=== PATIENT | female | born 1980 | race African-American/Black ===

== ENCOUNTER 2018-10-17 03:57 | Emergency (ER) | payer OTHER ==
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
[2018-10-17 04:10] VITALS: BP 170/94; PULSE 73; TEMP 97.9; BMI 33.6
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
[2018-10-17] MEDS ORDERED: IBUPROFEN 400 MG TABLET (FP) PO ONE (04:17)
[2018-10-17] MEDS ORDERED: METHOCARBAMOL 500 MG TABLET PO ONE (05:14)
[2018-10-17] MEDS ORDERED: KETOROLAC TROMETHAMINE 30 MG/1 ML VIAL IM ONE (05:14)
[2018-10-17] MEDS ORDERED: KETOROLAC TROMETHAMINE 30 MG/1 ML VIAL ONE (05:20)
[2018-10-17] MEDS ORDERED: METHOCARBAMOL 500 MG TABLET ONE (05:20)
== END 2018-10-17 06:25 | disposition home or self-care (01) ==
LOC: JER 03:57
PROC: 3E0233Z Introduction of Anti-inflammatory into Muscle, Percutaneous Approach (ICD-10-PCS; principal; 2018-10-17)
DX: M25.511 Pain in right shoulder (principal); M62.838 Other muscle spasm
CPT/HCPCS: 73030-TC-RT-FY; 84703; 99281-25

== ENCOUNTER 2018-12-10 09:09 | Emergency (ER) | payer OTHER ==
[2018-12-10 09:24] VITALS: BP 126/84; PULSE 79; TEMP 98.4; BMI 30.9
--- NOTE | 2018-12-10 09:55 | PDOC ---
History of Present Illness - General Chief Complaint: Headache Stated Complaint: BLOOD PRESSURE PROBLEM, HEADACHE Time Seen by Provider: 12/10/18 09:39 History Source: Patient - History of Present Illness Initial Comments: 12/10/18 11:57 The patient is 37 year old female with no PMH who presents c/o 2 day h/o headache. 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 Headache is frontal with no radiation. Endorses nausea w/o vomiting. No visual changes, tinnitus, mental status changes. No h/o migraines. Headache is not the worst headache of her life. Tylenol provided some relief. The patient denies chest pain, shortness of breath, abdominal pain, nausea/ vomiting, diarrhea/constipation, dysuria/hematuria. Past History - Past Medical History Allergies/Adverse Reactions: Allergies Allergy/AdvReac Type Severity Reaction Status Date / Time No Known Allergies Allergy Verified 12/10/18 09:22 Home Medications: Ambulatory Orders NK [No Known Home Medication] 12/10/18 Anemia: No Asthma: No Cancer: No Cardiac Disorders: No CVA: No COPD: No CHF: No Dementia: No Diabetes: No Dialysis: No GI Disorders: No Disorders: No HTN: Yes (PT STATES IT WAS INDUCED HTN. NOT ON BP MEDS) Hypercholesterolemia: No Kidney Stones: No Liver Disease: No Seizures: No Thyroid Disease: No - Surgical History Abdominal Surgery: No Appendectomy: No Cardiac Surgery: No Cholecystectomy: Yes Lung Surgery: No Neurologic Surgery: No Orthopedic Surgery: No - Reproductive History (#): 1 Para: 1 - Immunization History Immunization Up to Date: Yes - Suicide/Smoking/Psychosocial Hx Smoking Status: No Smoking History: Never smoked Have you smoked in the past 12 months: No Number of Cigarettes Smoked Daily: 0 Hx Alcohol Use: No Drug/Substance Use Hx: No Substance Use Type: None Hx Substance Use Treatment: No Review of Systems - Review of Systems Constitutional: No: Chills, Fever HEENTM: No: Blurred Vision, Recent change in vision, Double Vision, Hearing Loss Respiratory: No: Cough, Shortness of Breath Cardiac (ROS): No: Chest Pain, Lightheadedness, Palpitations, Syncope ABD/GI: No: Constipated, Diarrhea, Nausea, Vomiting : No: Burning, Dysuria *Physical Exam - Vital Signs Last Vital Signs Temp Pulse Resp BP Pulse Ox 98.4 F 79 18 126/84 99 12/10/18 09:22 12/10/18 09:22 12/10/18 09:22 12/10/18 09:22 12/10/18 09:22 - Physical Exam General Appearance: Yes: Nourished, Appropriately Dressed HEENT: positive: Normal ENT Inspection, Normal Voice, Hearing Grossly Normal Neck: positive: Trachea midline Respiratory/Chest: positive: Lungs Clear, Normal Breath Sounds Cardiovascular: positive: S1, S2. negative: Edema, JVD Vascular Pulses: Dorsalis-Pedis (R): 2+, Doralis-Pedis (L): 2+ Gastrointestinal/Abdominal: positive: Normal Bowel Sounds, Soft Extremity: positive: Normal Capillary Refill, Normal Inspection Integumentary: positive: Normal Color, Dry, Warm Neurologic: positive: Fully Oriented, Alert Moderate Sedation - Procedure Monitoring Vital Signs: Procedure Monitoring Vital Signs Temperature 98.4 F 12/10/18 09:22 Pulse Rate 79 12/10/18 09:22 Respiratory Rate 18 12/10/18 09:22 Blood Pressure 126/84 12/10/18 09:22 O2 Sat by Pulse Oximetry (%) 99 12/10/18 09:22 Medical Decision Making - Medical Decision Making 12/10/18 12:54 37 year old female with no significant PMH presents with headache. VS unremarkable. Will obtain Head CT to r/o acute bleed. Also consider migraine, tension headache, . Tylenol for pain control. Reassess Urine negative Patient reassessed at bedside States she is symptomatically improved w/Tylenol. VSS Notes 2-3 month h/o intermittent diffuse body aches, no association with working (patient works as an [employer] INS[employer] SPECIAL AGENT and notes she is physically active @ work); no known h/o AI disease in family. Head CT negative Patient ambulatory around unit. Improved. Will discharge home with return precautions and PMD follow-up including evaluation for reported body aches. Clinical Impression: Headache: ? possible tension vs. migraine *DC/Admit/Observation/Transfer Diagnosis at time of Disposition: Headache - Discharge Dispostion Disposition: HOME Condition at time of disposition: Good Decision to Admit order: No - Referrals - Patient Instructions Printed Discharge Instructions: DI for Headache Additional Instructions: You were evaluated today for your headaches. A cat scan of your head showed no concerning findings. At this time you are safe for discharge home. You can take Tylenol (up to 4000 mg daily) alternating with Motrin (up to 3200 mg daily) Please follow-up with your primary care doctor in the next 1 week for your headaches as well as your body aches. Your care is not complete until you are evaluated by your primary care doctor. Return to the Emergency Department for any new/worsening/concerning symptoms. - Post Discharge Activity
--- NOTE | 2018-12-10 09:56 | PDOC ---
Attending Attestation - Resident Resident Name: Luisa Montiel - ED Attending Attestation I have performed the following: I have examined & evaluated the patient, The case was reviewed & discussed with the resident, I agree w/resident's findings & plan, Exceptions are as noted - HPI HPI: 12/10/18 14:08 Ms Katharine Escobedo is a 37 yo F who presents to the ER with a complaint of headache The patient states that her symptoms began a possibly 2 days ago. She awoke with a headache. She describes headache as tension, frontal, no radiation to the neck. No associated vomiting, though she was nauseous yesterday. No head trauma. No fevers or chills. No focal weakness or numbness. Patient had a currently 5/10. Headache started 2 days ago, she took Tylenol which helped. - Physicial Exam PE: 12/10/18 14:08 GENERAL: The patient is in no acute distress. HEAD: Normal EYES: PERRLA, EOMI, sclera anicteric, conjunctiva clear. ENT: Ears normal, nares patent, oropharynx clear without exudates. Moist mucous membranes. NECK: Normal range of motion, supple without lymphadenopathy, JVD, or masses. LUNGS: Breath sounds equal, clear to auscultation bilaterally. No wheezes, and no crackles. HEART:Regular rate and rhythm, normal S1 and S2 without murmur, rub or gallop. ABDOMEN: Soft, nontender, normoactive bowel sounds. No guarding, no rebound. No masses palpable. EXTREMITIES: Normal range of motion, no edema. No clubbing or cyanosis. No erythema, or tenderness. NEUROLOGICAL: Cranial nerves II through XII grossly intact. Normal speech. No focal neurological deficits. MUSCULOSKELETAL: Back non-tender to palpation, no CVA tenderness SKIN: Warm, Dry, normal turgor, no rashes or lesions noted. 12/10/18 14:09 - Medical Decision Making 12/10/18 14:10 CT head: No acute intracranial hemorrhage. Patient given Reglan and Tylenol with complete resolution of her symptoms. Will plan to discharge home. Patient asked to follow-up with her primary care physician. Return to the ER for any other concerns or complaints Clinical impression: tension headache, initial presentation
[2018-12-10] MEDS ORDERED: ACETAMINOPHEN 500 MG TABLET (FP) PO ONE (10:06)
[2018-12-10] MEDS ORDERED: METOCLOPRAMIDE HCL INJECTION 10 MG/2 ML VIAL IM ONE (10:06)
[2018-12-10] MEDS ORDERED: ACETAMINOPHEN 325 MG TABLET (FP) ONE (10:14)
[2018-12-10] MEDS ORDERED: METOCLOPRAMIDE HCL INJECTION 10 MG/2 ML VIAL ONE (10:14)
== END 2018-12-10 13:34 | disposition home or self-care (01) ==
LOC: JER 09:09
PROC: 3E023GC Introduction of Other Therapeutic Substance into Muscle, Percutaneous Approach (ICD-10-PCS; principal; 2018-12-10)
DX: R51 Headache (principal)
CPT/HCPCS: 70450-TC; 84703; 99281-25

== ENCOUNTER 2019-07-20 04:23 | Emergency (ER) | payer OTHER ==
--- NOTE | 2019-07-20 04:31 | PDOC ---
History of Present Illness - General Stated Complaint: 11 WEEEKS /CRAMPS Time Seen by Provider: 07/20/19 04:31 - History of Present Illness Initial Comments: 07/20/19 05:03 The patient is a 38 year old 11 week female with no significant PMH who presents for evaluation of lower abdominal pain. The patient reports that she began experiencing moderate lower abdominal cramping yesterday evening that has been persistent despite taking tylenol at home prompting her presentation to the ED for further evaluation. She otherwise denies fevers, chills, SOB, chest pain, nausea, vomiting, vaginal bleeding, vaginal discharge, or changes with urination or bowel movements. Past History - Past Medical History Allergies/Adverse Reactions: Allergies Allergy/AdvReac Type Severity Reaction Status Date / Time No Known Allergies Allergy Verified 07/20/19 04:51 Home Medications: Ambulatory Orders NK [No Known Home Medication] 12/10/18 Anemia: No Asthma: No Cancer: No Cardiac Disorders: No CVA: No COPD: No CHF: No Dementia: No Diabetes: No Dialysis: No GI Disorders: No Disorders: No HTN: Yes (PT STATES IT WAS INDUCED HTN. NOT ON BP MEDS) Hypercholesterolemia: No Kidney Stones: No Liver Disease: No Seizures: No Thyroid Disease: No - Surgical History Abdominal Surgery: No Appendectomy: No Cardiac Surgery: No Cholecystectomy: Yes Lung Surgery: No Neurologic Surgery: No Orthopedic Surgery: No - Reproductive History (#): 1 Para: 1 - Immunization History Immunization Up to Date: Yes - Suicide/Smoking/Psychosocial Hx Smoking Status: No Smoking History: Never smoked Have you smoked in the past 12 months: No Number of Cigarettes Smoked Daily: 0 Hx Alcohol Use: No Drug/Substance Use Hx: No Substance Use Type: None Hx Substance Use Treatment: No Review of Systems - Review of Systems Comments:: 07/20/19 05:07 Constitutional: No fevers, chills, fatigue, malaise HEENT: No Rhinorrhea, nasal congestion, visual changes Cardiovascular: No chest pain, syncope, palpitations, lightheadedness Respiratory: No Cough, SOB, Hemoptysis, Gastrointestinal: Lower abdominal cramping No Nausea, Vomiting, Constipation, Diarrhea, Melena Genitourinary: No Dysuria, Frequency, Urgency, Hesitancy, Hematuria, Flank pain Musculoskeletal: No Myalgia, arthralgia Skin: No rashes, itching, bruising, pallor Neurologic: No Headache, Dizziness, Numbness, Weakness, or Tingling Psychiatric: No Hallucinations. No SI or HI *Physical Exam - Physical Exam Comments: 07/20/19 05:08 General Appearance: Nourished. No Apparent Distress HEENT: EOMI, LUIS. No Pharyngeal Erythema, Tonsillar Exudate, Tonsillar Erythema Neck: No Cervical Lymphadenopathy Respiratory/Chest: Lungs Clear, Normal Breath Sounds. No Crackles, Rales, Rhonchi, Wheezing Cardiovascular: Regular Rhythm, Regular Rate. No Murmur, Gallops, Rubs Gastrointestinal/Abdominal: Normal Bowel Sounds, Soft. No Guarding, Rebound, Tenderness Pelvic Exam: Normal External Exam. Closed Cervical Os. No discharge or bleeding noted. No CMT or adenxal tenderness. Musculoskeletal: No CVA Tenderness Extremity: Normal Capillary Refill Integumentary: Normal Color, Dry, Warm Neurologic: Fully Oriented, Alert, Normal Mood/Affect, Normal Response, ED Treatment Course - LABORATORY CBC & Chemistry Diagram: 07/20/19 05:08 07/20/19 05:08 Medical Decision Making - Medical Decision Making 07/20/19 05:09 The patient is a 38 year old 11 week female with no significant PMH who presents for evaluation of lower abdominal pain. Differential includes but is not limited to: Round ligament pain, Miscarriage, UTI, Infectious, Metabolic Derangement. Given the patient's history and physical exam, we will obtain a cbc, cmp, beta-quant, US, UA to evaluate further. We will treat the patient with tylenol and continue to monitor and reassess while here in the ED. Bedside US demonstrates a live IUP with a HR of 164. 07/20/19 06:55 CBC, cmp, UA are unremarkable. The patient was signed out to the day team pending official US imaging and dispo. *DC/Admit/Observation/Transfer Diagnosis at time of Disposition: related bilateral lower abdominal cramping, antepartum - Discharge Dispostion Condition at time of disposition: Stable - Referrals Referrals: Alex Morelos MD [Staff Physician] - - Patient Instructions Printed Discharge Instructions: DI for Abdominal Pain -- Early Additional Instructions: 1) Please follow-up with your primary care doctor in the next 2-3 days. Please call tomorrow to schedule a follow up appointment. If you cannot follow up with your doctor within 1 week please return to the Emergency Department for any urgent issues. 2) Your laboratory and Ultrasound imaging results were normal here in the ER. You are to call to schedule a follow up appointment with your Echo Technologist Specialist Dr. Morelos within 2-3 days to discuss your ER visit and further management of your symptoms. You may use tylenol at home as needed to help manage your pain. 3) If you have any worsening of symptoms or any other concerns, please return to the ER immediately. Return if worsening symptoms including vaginal bleeding, fevers, headache, vomiting, visual or hearing disturbances, abdominal pain, chest pain, shortness of breath, syncope, dehydration, inability to take things by mouth/vomiting, altered mental status, or worsening concerning symptoms. - Post Discharge Activity
[2019-07-20 04:51] VITALS: BMI 35.8
[2019-07-20] MEDS ORDERED: ACETAMINOPHEN 1000 MG/100 ML VIAL (NON FORMULARY) IVPB ONE (05:01)
--- NOTE | 2019-07-20 05:02 | PDOC ---
Documentation entered by Harriet Costa SCRIBE, acting as scribe for Elaine Murillo DO. Elaine Murillo DO: This documentation has been prepared by the Igor mata Adrianna, SCRIBE, under my direction and personally reviewed by me in its entirety. I confirm that the documentation accurately reflects all work, treatment, procedures, and medical decision making performed by me. Attending Attestation - Resident Resident Name: Froilan Gomez - ED Attending Attestation I have performed the following: I have examined & evaluated the patient, The case was reviewed & discussed with the resident, I agree w/resident's findings & plan - HPI HPI: The patient is a 38 year old female (), currently at 11 weeks gestation with no significant PMH, who presents to the ED for evaluation of pelvic cramping Allergies: NKA, NKDA Surgical History: Cholecystectomy Social History: Denies EtOH, tobacco, or illicit drug use PCP: 07/20/19 05:01 - Physicial Exam PE: Agree with resident exam. - Medical Decision Making 07/20/19 05:01 38 yo female with pelvic cramping mary 11 weeks GA bedside US shows a live IUP with fhr at 163 bpm plan for labs/u/s and official US
[2019-07-20] MEDS ORDERED: ACETAMINOPHEN INJECTION 100 ML IVPB ONE (05:16)
[2019-07-20 05:31] LABS: EPI CELLS 0.6 /HPF (0-5/HPF); HYALINE CASTS 2 /lpf (0-8); URINE APPEARANCE CLEAR; URINE BACTERIA 10.7 /hpf (NEGATIVE); URINE BILIRUBIN NEGATIVE (NEGATIVE); URINE COLOR YELLOW; URINE GLUCOSE (UA) NEGATIVE (NEGATIVE); URINE KETONE NEGATIVE (NEGATIVE); URINE LEUK ESTERASE NEGATIVE (NEGATIVE); URINE NITRITE NEGATIVE (NEGATIVE); URINE PROTEIN TRACE (NEGATIVE); URINE RBC 2 /hpf (0-4); URINE UROBILINOGEN 0.2 mg/dL (0.2-1.0); URINE WBC 0 /hpf (0-5)
[2019-07-20 05:42] LABS: BASO % 0.7 % (0-2.0); EOS % 1.8 % (0-4.5); HEMATOCRIT 38.9 % (32.4-45.2); HEMOGLOBIN 12.8 GM/dL (10.7-15.3); LYMPH % 26.5 % (8-40); MCH 26.4 pg (25.7-33.7); MCHC 32.8 g/dl (32.0-36.0); MEAN CELL VOLUME 80.6 fl (80-96); MEAN PLT VOLUME 9.8 fl (7.5-11.1); MONO % 10.3 % (3.8-10.2); NEUT % 60.7 % (42.8-82.8); PLATELET COUNT 247 K/MM3 (134-434); RBC 4.83 M/mm3 (3.60-5.2); RDW 17.9 % (11.6-15.6); WHITE BLOOD COUNT 9.2 K/mm3 (4.0-10.0)
[2019-07-20 05:53] LABS: ALBUMIN 3.1 g/dl (3.4-5.0); BILIRUBIN,TOTAL 0.4 mg/dL (0.2-1); BLOOD UREA NITROGEN 8.1 mg/dL (7-18); CREATININE 0.6 mg/dL (0.55-1.3); POTASSIUM 5.1 mmol/L (3.5-5.1); TOT PROT 7.1 g/dl (6.4-8.2)
[2019-07-20 06:19] VITALS: TEMP 98.3
--- NOTE | 2019-07-20 09:15 | PDOC ---
*Physical Exam - Vital Signs Last Vital Signs Temp Pulse Resp BP Pulse Ox 98.3 F 72 18 138/75 100 07/20/19 06:17 07/20/19 06:17 07/20/19 06:17 07/20/19 06:17 07/20/19 06:17 ED Treatment Course - LABORATORY CBC & Chemistry Diagram: 07/20/19 05:08 07/20/19 05:08 - ADDITIONAL ORDERS Additional order review: Laboratory Results 07/20/19 07/20/19 05:08 05:06 Sodium 139 Potassium 5.1 Chloride 108 H Carbon Dioxide 26 Anion Gap 5 L BUN 8.1 Creatinine 0.6 Est GFR (CKD-EPI)AfAm 133.07 Est GFR (CKD-EPI)NonAf 114.82 Random Glucose 88 Calcium 9.0 Total Bilirubin 0.4 AST 24 ALT 29 Alkaline Phosphatase 51 Total Protein 7.1 Albumin 3.1 L Beta HCG, Quant 93626.6 Urine Color Yellow Urine Appearance Clear Urine pH 7.0 Ur Specific [place] 1.011 Urine Protein Trace Urine Glucose (UA) Negative Urine Ketones Negative Urine Blood 1+ H Urine Nitrite Negative Urine Bilirubin Negative Urine Urobilinogen 0.2 Ur Leukocyte Esterase Negative Urine WBC (Auto) 0 Urine RBC (Auto) 2 Urine Casts (Auto) 2 U Epithel Cells (Auto) 0.6 Urine Bacteria (Auto) 10.7 07/20/19 05:08 RBC 4.83 MCV 80.6 MCHC 32.8 RDW 17.9 H MPV 9.8 Neutrophils % 60.7 Lymphocytes % 26.5 Monocytes % 10.3 H Eosinophils % 1.8 Basophils % 0.7 - Medications Given in the ED: ED Medications Discontinued Medications Generic Name Dose Route Start Last Admin Trade Name Homer PRN Reason Stop Dose Admin Acetaminophen 1,000 mg 07/20/19 05:01 07/20/19 05:19 Ofirmev Injection - IVPB 07/20/19 05:02 1,000 mg ONCE ONE Administration Medical Decision Making - Medical Decision Making 07/20/19 09:14 38 yo F presenting with a complaint of abdominal cramping Signed out pending US US read as : Single Live IUP, 11 weeks and 4 days FHR: 168 bpm Neither ovary visualized No free fluid Fibriod Will discharge to home Follow up with Dr Morelos *DC/Admit/Observation/Transfer Diagnosis at time of Disposition: related bilateral lower abdominal cramping, antepartum - Discharge Dispostion Disposition: HOME Condition at time of disposition: Stable Decision to Admit order: No - Referrals Referrals: Alex Morelos MD [Staff Physician] - - Patient Instructions Printed Discharge Instructions: DI for Abdominal Pain -- Early Additional Instructions: 1) Please follow-up with your primary care doctor in the next 2-3 days. Please call tomorrow to schedule a follow up appointment. If you cannot follow up with your doctor within 1 week please return to the Emergency Department for any urgent issues. 2) Your laboratory and Ultrasound imaging results were normal here in the ER. You are to call to schedule a follow up appointment with your [employer]lier Specialist Dr. Morelos within 2-3 days to discuss your ER visit and further management of your symptoms. You may use tylenol at home as needed to help manage your pain. 3) If you have any worsening of symptoms or any other concerns, please return to the ER immediately. Return if worsening symptoms including vaginal bleeding, fevers, headache, vomiting, visual or hearing disturbances, abdominal pain, chest pain, shortness of breath, syncope, dehydration, inability to take things by mouth/vomiting, altered mental status, or worsening concerning symptoms. - Post Discharge Activity
[2019-07-20 09:34] VITALS: BP 124/78; PULSE 68
== END 2019-07-20 09:30 | disposition home or self-care (01) ==
LOC: JER 04:23
PROC: 3E033NZ Introduction of Analgesics, Hypnotics, Sedatives into Peripheral Vein, Percutaneous Approach (ICD-10-PCS; principal; 2019-07-20)
DX: O26.891 Other specified pregnancy related conditions, first trimester (principal); Z3A.11 11 weeks gestation of pregnancy; R10.2 Pelvic and perineal pain
CPT/HCPCS: 36415; 76801-TC; 80053; 81003; 84702; 85025; 87086; 99283-25; J0131

== ENCOUNTER 2020-01-05 12:30 | Inpatient (IN) | payer OTHER ==
[2020-01-05] MEDS ORDERED: LIDOCAINE HCL 1% PRESERVATIVE FREE - 30ML VIAL ONE (13:14)
[2020-01-05] MEDS ORDERED: CITRIC ACID/SODIUM CITRATE 30 ML UNIT-DOSE CUP PO ONE (13:47)
--- NOTE | 2020-01-05 13:50 | HP ---
Past Medical History - Primary Care Physician PCP:: Alex Morelos - Admission Chief Complaint: 36 weeks, PIH, previous c/s , previous myomectomy, AMA. IVF , fibroid uterus History of Present Illness: 39 f with one previous c/s , previous myomectomy , fibroids uterus, PIH with proteinuria , AMA , IVF admitted for repeat c/s for PIH , received celestone ,advised by MFM advised c/s, risks associated with repeat c/ s and previous myomectomy discussed , risks of infection, bleeding, injury to surrounding tissue , post op complication discussed. 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 History of Recent Travel: No Home Medications - Allergies Allergies/Adverse Reactions: Allergies Allergy/AdvReac Type Severity Reaction Status Date / Time No Known Allergies Allergy Verified 01/05/20 13:59 - Home Medications Home Medications: Ambulatory Orders Vitamins (Sjr) - 1 tab PO DAILY 01/03/20 Review of Systems - Review of Systems Constitutional: reports: No Symptoms Eyes: reports: No Symptoms HENT: reports: No Symptoms Neck: reports: No Symptoms Cardiovascular: reports: No Symptoms Respiratory: reports: No Symptoms Gastrointestinal: reports: No Symptoms Genitourinary: reports: No Symptoms Breasts: reports: No Symptoms Reported Musculoskeletal: reports: No Symptoms Integumentary: reports: No Symptoms Neurological: reports: No Symptoms Endocrine: reports: No Symptoms Hematology/Lymphatic: reports: No Symptoms Psychiatric: reports: No Symptoms Physical Exam - Maternity Constitutional: Yes: Well Nourished, No Distress, Calm Eyes: Yes: WNL, Conjunctiva Clear, EOM Intact HENT: Yes: WNL, Atraumatic, Normocephalic Neck: Yes: WNL, Supple, Trachea Midline Cardiovascular: Yes: WNL, Regular Rate and Rhythm Breast(s): Yes: WNL - Abdominal Exam/OB Fundal Height: 38 Number of Fetuses: Single Presentation: Vertex Contractions: No Intensity: Unaware Monitor Mode: External Heart Rate Location: RLQ Accelerations: Non-Uniform Decelerations: None - Vaginal Exam/OB Vaginal Bleediing: No Speculum Exam: No Dilatation (cm): closed Effacement (%): 0 Amniotic Membrane Status: Intact Presentation: Vertex/Position Station: -4 - Physical Exam Musculoskeletal: Yes: WNL Extremities: Yes: WNL Edema: Yes Edema: LLE: 1+, RLE: 1+ Integumentary: Yes: WNL Deep Tendon Reflex Grade: Normal +2 ...Motor Strength: WNL Psychiatric: Yes: WNL Hemorrhage Risk Assessment - Risk Factors Medium Risk Factors: Yes: Prior , uterine surgery,or multiple laparotomies, History of previous hemorrhage Risk Score: 2 Risk Level: High Risk Problem List - Problems (1) with 36 completed weeks gestation Code(s): Z3A.36 - 36 WEEKS GESTATION OF (2) Previous section complicating Code(s): O34.219 - MATERNAL CARE FOR UNSP TYPE SCAR FROM PREVIOUS DEL (3) Fibroid uterus Code(s): D25.9 - LEIOMYOMA OF UTERUS, UNSPECIFIED Qualifiers: Uterine leiomyoma location: intramural Qualified Code(s): D25.1 - Intramural leiomyoma of uterus (4) Advanced maternal age (AMA) in Code(s): FIB1592 - (5) conceived through in vitro fertilization Code(s): O09.819 - SUPRVSN OF PREG RSLT FROM ASSISTED REPRODCTV TECH, UNSP TRI (6) PIH ( induced hypertension), antepartum Code(s): O13.9 - GESTATIONAL HTN W/O SIGNIFICANT PROTEINURIA, UNSP TRIMESTER (7) Proteinuria affecting Code(s): O12.10 - GESTATIONAL PROTEINURIA, UNSPECIFIED TRIMESTER Assessment/Plan for repeat c/s, risks of prematurity and c/s discussed
[2020-01-05] MEDS ORDERED: ELECTROLYTE-148 SOLN 1,000 ML IV SCH (14:00)
[2020-01-05 14:11] VITALS: BMI 37.5
[2020-01-05] MEDS ORDERED: PROPOFOL 20 ML ONE (14:25)
[2020-01-05] MEDS ORDERED: morphine SULFATE/PF 0.5 MG/ML (2cc Syringe - QUVA) ONE (14:28)
[2020-01-05] MEDS ORDERED: OXYTOCIN 20 UNITS in 0.9% NS 20 UNIT/1,000 ML INFUS.BAG IV ONE (15:07)
[2020-01-05] MEDS ORDERED: KETOROLAC TROMETHAMINE 30 MG/1 ML VIAL ONE (15:21)
[2020-01-05] MEDS ORDERED: morphine SULFATE/PF 0.5 MG/ML (2cc Syringe - QUVA) EP ONE (15:36)
[2020-01-05] MEDS ORDERED: ONDANSETRON 4 MG/2 ML VIAL IVPUSH PRN (15:36)
[2020-01-05] MEDS ORDERED: IBUPROFEN 800 MG/8 ML IJ IVPB PRN (16:24)
[2020-01-05] MEDS ORDERED: BENZOCAINE 20% 57 GM BOTTLE TP PRN (16:24)
[2020-01-05] MEDS ORDERED: oxyCODONE HCL 5 MG TABLET PO PRN (16:24)
[2020-01-05] MEDS ORDERED: METHYLERGONOVINE MALEATE 0.2 MG/1 ML AMP IM PRN (16:24)
[2020-01-05] MEDS ORDERED: BENZOCAINE 28 GM HEMORRHOIDAL OINTMENT PR PRN (16:24)
[2020-01-05] MEDS ORDERED: WITCH HAZEL 50% (TUCKS) 40 PAD/JAR PAD TP PRN (16:24)
--- NOTE | 2020-01-05 16:29 | OP ---
Operative Note - Note: Operative Date: 01/05/20 Operation: previous c/s, previous myomectomy , PIH Findings: live baby girl ROT, cord around neck once . 9/9 Post-Operative Diagnosis: Same as Pre-op Surgeon: Alex Morelos Ophthalmic Photographer: Andrew Calderon Anesthesia: Spinal Specimens Removed: placenta Estimated Blood Loss (mls): 500 Drains & Tubes with Location: simeon Blood Volume Replaced (mls): 0 Operative Report Dictated: Yes
[2020-01-05] MEDS ORDERED: OXYTOCIN 20 UNITS in 0.9% NS 20 UNIT/1,000 ML INFUS.BAG IV SCH (16:30)
[2020-01-05] MEDS ORDERED: CEFAZOLIN 1 GM/D5W 1 GM/50 ML BAG IVPB SCH (18:00)
[2020-01-05] MEDS: DEXTROSE 5%-LACTATED RINGERS 1,000 ML IV SCH (20:22)
[2020-01-05] MEDS: CEFAZOLIN 1 GM/D5W 1 GM/50 ML BAG IVPB SCH (22:27)
[2020-01-06] MEDS: diphenhydrAMINE HCL 25 MG CAPSULE (FP) PO PRN ×2 (02:09→10:44)
[2020-01-06] MEDS: DEXTROSE 5%-LACTATED RINGERS 1,000 ML IV SCH ×2 (02:10→20:16)
[2020-01-06] MEDS: CEFAZOLIN 1 GM/D5W 1 GM/50 ML BAG IVPB SCH (06:14)
--- NOTE | 2020-01-06 07:45 | PN ---
Progress Note (short form) - Note Progress Note: pod 1 s/p repeat c/s, doing well, Last Vital Signs Temp Pulse Resp BP Pulse Ox 98.4 F 74 18 119/71 100 01/06/20 06:00 01/06/20 06:00 01/06/20 06:00 01/06/20 06:00 01/05/20 17:00 abdomen soft, no disstenssion, no cva uterus firm lochia mild no calf tenderness urine clear , adequate plan ambulate cbc advance diet pain management Problem List - Problems (1) with 36 completed weeks gestation Code(s): Z3A.36 - 36 WEEKS GESTATION OF (2) Previous section complicating Code(s): O34.219 - MATERNAL CARE FOR UNSP TYPE SCAR FROM PREVIOUS DEL (3) Fibroid uterus Code(s): D25.9 - LEIOMYOMA OF UTERUS, UNSPECIFIED Qualifiers: Uterine leiomyoma location: intramural Qualified Code(s): D25.1 - Intramural leiomyoma of uterus (4) Advanced maternal age (AMA) in Code(s): [id number] - (5) conceived through in vitro fertilization Code(s): O09.819 - SUPRVSN OF PREG RSLT FROM ASSISTED REPRODCTV TECH, UNSP TRI (6) PIH ( induced hypertension), antepartum Code(s): O13.9 - GESTATIONAL HTN W/O SIGNIFICANT PROTEINURIA, UNSP TRIMESTER (7) Proteinuria affecting Code(s): O12.10 - GESTATIONAL PROTEINURIA, UNSPECIFIED TRIMESTER
[2020-01-06 09:09] LABS: BASO % 0.1 % (0-2.0); EOS % 0.2 % (0-4.5); HEMATOCRIT 34.2 % (32.4-45.2); HEMOGLOBIN 11.1 GM/dL (10.7-15.3); LYMPH % 18.7 % (8-40); MCH 27.7 pg (25.7-33.7); MCHC 32.6 g/dl (32.0-36.0); MEAN CELL VOLUME 85.1 fl (80-96); MEAN PLT VOLUME 10.4 fl (7.5-11.1); MONO % 11.7 % (3.8-10.2); NEUT % 69.3 % (42.8-82.8); PLATELET COUNT 182 K/MM3 (134-434); RBC 4.01 M/mm3 (3.60-5.2); RDW 16.9 % (11.6-15.6); WHITE BLOOD COUNT 10.2 K/mm3 (4.0-10.0)
--- NOTE | 2020-01-06 10:24 | OP ---
DATE OF OPERATION: 01/06/2020 PREOPERATIVE DIAGNOSIS: 36 weeks, -induced hypertension, previous section, previous myomectomy, advanced maternal age, fibroid uterus, and in vitro fertilization . POSTOPERATIVE DIAGNOSIS: 36 weeks, -induced hypertension, previous section, previous myomectomy, advanced maternal age, fibroid uterus, and in vitro fertilization . PROCEDURE: Repeat low segment transverse section. SURGEON: Alex Morelos MD REHABILITATION COORDINATOR: HEBERT Mehta ANESTHESIA: Spinal. ESTIMATED BLOOD LOSS: 500 mL. DESCRIPTION OF PROCEDURE: Patient was taken to the operating room under adequate spinal anesthesia. Abdomen and perineum were prepped and draped. A Pfannenstiel abdominal skin incision was made over the previous incision. Abdominal wall was cut layer by layer until peritoneum was exposed and incised. Upon entering the abdominal cavity, lower uterine segment was identified, and uterovesical fold of peritoneum established. Bladder was pushed down. A low transverse uterine incision was made. Incision was extended laterally with bandage scissors. Amniotic sac was entered. Clear fluid. Head delivered from ROP position. Cord around the neck x1 reduced anteriorly and posteriorly. Shoulders delivered without any difficulty. Live baby girl was delivered. Apgars 9, 9. Placenta was delivered manually. Uterine cavity was cleaned of all remaining tissue. Uterine incision was closed in 2 layers, the first layer with 0 Biosyn continuous suture, the second layer with 0 Biosyn imbricating the 1st layer. Bladder flap was closed with 0 Biosyn continuous suture. Both tubes and ovaries were checked and were normal. There were several fibroids at the body of the uterus, small. No active bleeding was seen. All of the lap pad, sponge, and instrument counts were correct. Pelvic cavity several times irrigated and then peritoneum was closed with a 0 Biosyn continuous suture. Muscles were brought together with interrupted sutures of 0 Biosyn. Fascia was closed with 0 Biosyn continuous suture, subcutaneous fat with interrupted suture of 0 Biosyn, and skin was closed with victoria. Patient tolerated procedure well. Left the OR in good condition. Jaymie [id number]
[2020-01-06] MEDS: ENOXAPARIN NA (PORCINE) 40 MG/0.4 ML DISP.SYRIN SQ SCH (10:44)
[2020-01-06] MEDS: IBUPROFEN 600 MG TABLET (FP) PO PRN (12:21)
[2020-01-06] MEDS: SIMETHICONE 80 MG TAB.CHEW (FP) PO PRN ×2 (12:22→22:43)
[2020-01-06] MEDS: ACETAMINOPHEN 325 MG TABLET (FP) PO PRN ×2 (12:22→22:42)
[2020-01-06] MEDS ORDERED: DIPHTH,PERTUSS(ACELL),TET 0.5 ML DISP.SYRIN IM ONE (14:00)
--- NOTE | 2020-01-06 14:46 | PN ---
Progress Note (short form) - Note Progress Note: Anesthesia POD#1 S/P under spinal and Duramorph. VSS,no N/V , ambulating well. some itch is still there. Legs fully recovered. No complications to anesthesia seen. Heather Thompson MD.
[2020-01-06] MEDS: BISACODYL 10 MG SUPP.RECT RC PRN (22:07)
[2020-01-07] MEDS: oxyCODONE HCL 5 MG TABLET PO PRN ×3 (08:13→19:29)
[2020-01-07] MEDS: SIMETHICONE 80 MG TAB.CHEW (FP) PO PRN ×3 (08:13→19:29)
[2020-01-07] MEDS: ACETAMINOPHEN 325 MG TABLET (FP) PO PRN ×3 (08:14→19:29)
[2020-01-07] MEDS: ENOXAPARIN NA (PORCINE) 40 MG/0.4 ML DISP.SYRIN SQ SCH (11:00)
--- NOTE | 2020-01-07 11:26 | PN ---
Post Progress Note - Subjective Subjective: Patient without acute complaints. Reports tolerating oral intake without nausea or vomiting. Ambulating without dizziness. Denies fevers or chills. Pain well controlled with oral pain medication. without difficulty. Passing flatus. Post Day: 2 Type of Delivery: Repeat C/S Vital Signs: Vital Signs Temperature 98.2 F 01/07/20 06:00 Pulse Rate 86 01/07/20 06:00 Respiratory Rate 20 01/07/20 06:00 Blood Pressure 159/91 01/07/20 06:00 O2 Sat by Pulse Oximetry (%) 100 01/05/20 17:00 Breast Exam: Yes: Soft Uterus: Yes: Fundus Firm Incision: Yes: Dressing dry and intact Abdomen/GI: Yes: Passing flatus Lochia: Yes: Rubra Lochia, amount: Small Extremities: Yes: Calves non-tender Perineum: Yes: Intact Activity: Ambulating - Labs Labs: CBC WBC 10.2 K/mm3 (4.0-10.0) H 01/06/20 07:42 RBC 4.01 M/mm3 (3.60-5.2) 01/06/20 07:42 Hgb 11.1 GM/dL (10.7-15.3) 01/06/20 07:42 Hct 34.2 % (32.4-45.2) 01/06/20 07:42 MCV 85.1 fl (80-96) 01/06/20 07:42 MCH 27.7 pg (25.7-33.7) 01/06/20 07:42 MCHC 32.6 g/dl (32.0-36.0) 01/06/20 07:42 RDW 16.9 % (11.6-15.6) H 01/06/20 07:42 Plt Count 182 K/MM3 (134-434) 01/06/20 07:42 MPV 10.4 fl (7.5-11.1) 01/06/20 07:42 Absolute Neuts (auto) 7.1 K/mm3 (1.5-8.0) 01/06/20 07:42 Neutrophils % 69.3 % (42.8-82.8) 01/06/20 07:42 Lymphocytes % 18.7 % (8-40) 02/07/20 07:42 Monocytes % 11.7 % (3.8-10.2) H 01/06/20 07:42 Eosinophils % 0.2 % (0-4.5) 01/06/20 07:42 Basophils % 0.1 % (0-2.0) 01/06/20 07:42 Nucleated RBC % 0 % (0-0) 01/06/20 07:42 Assessment/Plan 39yo POD # 2 s/p Repeat LST c/section VSS, Afebrile Consistently elevated BP Pain well controlled Start Labetolol @ 200mgBID Will follow BPs Rh pos - no need for RhoGam
[2020-01-07] MEDS ORDERED: LABETALOL HCL 200 MG TABLET (FP) PO STA (12:35)
[2020-01-07] MEDS: BISACODYL 10 MG SUPP.RECT RC PRN (13:50)
[2020-01-07] MEDS: LABETALOL HCL 200 MG TABLET (FP) PO SCH (21:56)
[2020-01-07] MEDS ORDERED: SENNOSIDES/DOCUSATE COMBO (SENNA PLUS) TABLET (UD) PO PRN (22:00)
[2020-01-08] MEDS: SIMETHICONE 80 MG TAB.CHEW (FP) PO PRN ×2 (08:26→17:30)
[2020-01-08] MEDS: oxyCODONE HCL 5 MG TABLET PO PRN (08:26)
[2020-01-08] MEDS: ACETAMINOPHEN 325 MG TABLET (FP) PO PRN ×2 (08:27→17:31)
[2020-01-08 09:59] LABS: BASO % 0.2 % (0-2.0); EOS % 1.2 % (0-4.5); HEMATOCRIT 34.8 % (32.4-45.2); HEMOGLOBIN 11.5 GM/dL (10.7-15.3); LYMPH % 22.6 % (8-40); MCH 27.8 pg (25.7-33.7); MEAN CELL VOLUME 84.1 fl (80-96); MEAN PLT VOLUME 9.7 fl (7.5-11.1); PLATELET COUNT 236 K/MM3 (134-434); RBC 4.14 M/mm3 (3.60-5.2); RDW 16.7 % (11.6-15.6); WHITE BLOOD COUNT 11.3 K/mm3 (4.0-10.0)
[2020-01-08] MEDS: LABETALOL HCL 200 MG TABLET (FP) PO SCH (10:17)
[2020-01-08] MEDS: ENOXAPARIN NA (PORCINE) 40 MG/0.4 ML DISP.SYRIN SQ SCH (10:17)
--- NOTE | 2020-01-08 14:07 | PN ---
Post Progress Note - Subjective Subjective: Patient without acute complaints. Reports tolerating oral intake without nausea or vomiting. Ambulating without dizziness. Denies fevers or chills. Pain well controlled with oral pain medication. without difficulty. Passing flatus, + BM Post Day: 3 Type of Delivery: Repeat C/S Vital Signs: Vital Signs Temperature 98.9 F 01/08/20 10:00 Pulse Rate 79 01/08/20 10:00 Respiratory Rate 20 01/08/20 10:00 Blood Pressure 140/85 01/08/20 10:00 O2 Sat by Pulse Oximetry (%) 100 01/05/20 17:00 Breast Exam: Yes: Soft Uterus: Yes: Fundus Firm Incision: Yes: Landon intact Abdomen/GI: Yes: Abdomen soft, Passing flatus, Tolerating PO Lochia: Yes: Rubra Lochia, amount: Small Extremities: Yes: Calves non-tender Perineum: Yes: Intact Activity: Ambulating - Labs Labs: CBC WBC 11.3 K/mm3 (4.0-10.0) H 01/08/20 08:50 RBC 4.14 M/mm3 (3.60-5.2) 01/08/20 08:50 Hgb 11.5 GM/dL (10.7-15.3) 01/08/20 08:50 Hct 34.8 % (32.4-45.2) 01/08/20 08:50 MCV 84.1 fl (80-96) 01/08/20 08:50 MCH 27.8 pg (25.7-33.7) 01/08/20 08:50 MCHC 33.0 g/dl (32.0-36.0) 01/08/20 08:50 RDW 16.7 % (11.6-15.6) H 01/08/20 08:50 Plt Count 236 K/MM3 (134-434) D 01/08/20 08:50 MPV 9.7 fl (7.5-11.1) 01/08/20 08:50 Absolute Neuts (auto) 7.6 K/mm3 (1.5-8.0) 01/08/20 08:50 Neutrophils % 67.0 % (42.8-82.8) 01/08/20 08:50 Lymphocytes % 22.6 % (8-40) D 01/08/20 08:50 Monocytes % 9.0 % (3.8-10.2) 01/08/20 08:50 Eosinophils % 1.2 % (0-4.5) D 01/08/20 08:50 Basophils % 0.2 % (0-2.0) 01/08/20 08:50 Nucleated RBC % 0 % (0-0) 01/08/20 08:50 Assessment/Plan 39yo POD # 2 s/p Repeat LST c/section VSS, Afebrile BP control improved Pain well controlled Increase Labetolol to 300mgBID Will follow BPs Rh pos - no need for RhoGam Plan D/C 01/09/20
[2020-01-08] MEDS: IBUPROFEN 600 MG TABLET (FP) PO PRN (17:30)
[2020-01-08] MEDS ORDERED: LABETALOL HCL 100 MG TABLET (FP) ONE (22:07)
[2020-01-08] MEDS ORDERED: LABETALOL HCL 200 MG TABLET (FP) ONE (22:08)
[2020-01-08] MEDS: LABETALOL HCL 100 MG, LABETALOL HCL 200 MG PO SCH (22:13)
[2020-01-09] MEDS ORDERED: LABETALOL HCL 100 MG TABLET (FP) ONE (09:23)
[2020-01-09] MEDS ORDERED: LABETALOL HCL 200 MG TABLET (FP) ONE (09:24)
[2020-01-09 09:26] VITALS: BP 143/91; PULSE 76; TEMP 97.9
[2020-01-09] MEDS: ENOXAPARIN NA (PORCINE) 40 MG/0.4 ML DISP.SYRIN SQ SCH (09:26)
[2020-01-09] MEDS: LABETALOL HCL 100 MG, LABETALOL HCL 200 MG PO SCH (09:26)
--- NOTE | 2020-01-09 10:47 | DS ---
Physical Exam-TIRE MAINTENANCE TECHNICIAN Vital Signs: Vital Signs Temperature 97.9 F 01/09/20 09:25 Pulse Rate 76 01/09/20 09:25 Respiratory Rate 20 01/09/20 09:25 Blood Pressure 143/91 01/09/20 09:25 O2 Sat by Pulse Oximetry (%) 100 01/05/20 17:00 Constitutional: Yes: Well Nourished, No Distress Eyes: Yes: WNL, Conjunctiva Clear HENT: Yes: WNL, Atraumatic, Normocephalic Neck: Yes: WNL, Supple, Trachea Midline Cardiovascular: Yes: WNL, Regular Rate and Rhythm Respiratory: Yes: WNL, Regular, CTA Bilaterally Gastrointestinal: Yes: WNL, Normal Bowel Sounds, Soft Renal/: Yes: WNL Pelvis: Yes: WNL External Genitalia: Yes: Normal ....Post : Yes: Uterus firm, Uterus non-tender Breast(s): Yes: WNL Musculoskeletal: Yes: WNL Extremities: Yes: WNL Integumentary: Yes: WNL Wound/Incision: Yes: Clean/Dry, Well Approximated Neurological: Yes: WNL, Alert, Oriented ...Motor Strength: WNL Psychiatric: Yes: WNL, Alert, Oriented Labs: CBC, BMP 01/08/20 08:50 Delivery - Delivery Type of Anesthesia: Spinal Episiotomy/Laceration: None EBL (cc): 500 Delivery, Single - Stages of Labor Date of Delivery: 01/05/20 Time of Delivery: 15:13 Time Placenta Delivered: 15:14 - Condition of Research Anthropologist/Beveling And Edging Machine Operator Present: Yes Name: Diana Lake Gender: Female Weight: 5 lb 9 oz Position: Right, OT Total Hours ROM (Hrs/Mins): 0hrs 2min - 1 Minute Total Score: 9 5 Minutes Total Score: 9 - Feeding Plan Initial Plan: Elected not to breastfeed exclusively throughout hospitalization Discharge Summary Problems reviewed: Yes Reason For Visit: REPEAT Current Active Problems Advanced maternal age (AMA) in (Acute) Fibroid uterus (Acute) PIH ( induced hypertension), antepartum (Acute) conceived through in vitro fertilization (Acute) with 36 completed weeks gestation (Acute) Previous section complicating (Acute) Proteinuria affecting (Acute) Hospital Course: Hypertension Condition: Good - Instructions Diet, Activity, Other Instructions: Physical activity Resume your normal everyday activity as tolerated no heavy lifting or exercise until seen by your surgeon. You may walk unlimited leonardo of and climb stairs. You may resume driving the car when you feel safe and comfortable behind the wheel. No sexual activity as instructed. Wound care If you have a bandage, leave it on, and keep dry for 48-72 hours. After that time discard the outer bandage. If they are tapes on the skin under the out of bandage leave them in place. They will peel off in the next 7 to 10 days. Do Not Peel them off. You may shower the day after surgery. If there are tapes present on the skin, you may shower over them. Diet There are no dietary restrictions. Eat healthy, high-fiber foods. Drink 6 to 8 glasses of liquid each day. This will assist in keeping your bowels are regular. Pain management You may take Tylenol or acetaminophen or Ibuprofen (for example, Motrin, Advil etc.) from my pain prescription medication is ordered should be taken as prescribed for moderate to severe pain. Call MD for any of the following: Severe pain not relieved by medication Fever of 101 or higher Excessive bleeding or drainage on dressing Inability to urinate Referrals: Alex Morelos MD [Staff Physician] - Disposition: HOME - Home Medications Comprehensive Discharge Medication List: Ambulatory Orders Vitamins (Sjr) - 1 tab PO DAILY 01/03/20
[2020-01-09] MEDS: ACETAMINOPHEN 325 MG TABLET (FP) PO PRN (11:27)
[2020-01-09] MEDS: IBUPROFEN 600 MG TABLET (FP) PO PRN (11:27)
[2020-01-09] MEDS: SIMETHICONE 80 MG TAB.CHEW (FP) PO PRN (11:28)
--- NOTE | 2020-01-09 15:57 | PATH ---
Surgical Pathology Report Patient Name: SHAWANDA JULES Med. Rec. 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 Specimen(s) Received PLACENTA Clinical History , PIH Final Diagnosis PLACENTA, SECTION: 400 G THIRD TRIMESTER PLACENTA WITH TRIVASCULAR UMBILICAL CORD AND UNREMARKABLE PLACENTAL MEMBRANES. Electronically Signed Cecilia Yoo M.D. Gross Description The specimen is received fresh labeled placenta and is a 400 gram, 21.0 x 16.5 x 2.3 cm. placenta with attached membranes and umbilical cord. The attached membranes are pollard, translucent with focal opacities and insert marginally. The umbilical cord measures 18 cm. in length and averages 1.3 cm. in diameter. The cord inserts centrally. No true knots or strictures are identified. Cut surface of the umbilical cord reveals 3 vessels. The surface is galan-blue with minimal fibrin deposition and appropriate caliber vessels. The maternal surface is red-brown with focal defects. Sectioning reveals red-brown, spongy parenchyma. No lesions are identified. Aircraft Structure Mechanic sections are submitted in three cassettes as follows: 1- membrane rolls and umbilical cord; 2-3- full thickness sections of placenta. /01/06/2020 saudi/01/06/2020
== END 2020-01-09 17:20 | disposition home or self-care (01) | DRG 786 ==
LOC: JLDR 12:30 → J3W 17:30
PROVIDERS: ADMIT Obstetrics & Gynecology; ATTEND Obstetrics & Gynecology
PROC: 10D00Z1 Extraction of Products of Conception, Low, Open Approach (ICD-10-PCS; principal; 2020-01-06)
DX: O13.3 Gestational [pregnancy-induced] hypertension without significant proteinuria, third trimester (principal); O60.14X0 Preterm labor third trimester with preterm delivery third trimester, not applicable or unspecified; O12.13 Gestational proteinuria, third trimester; O34.211 Maternal care for low transverse scar from previous cesarean delivery; N85.8 Other specified noninflammatory disorders of uterus; Z3A.36 36 weeks gestation of pregnancy; Z37.0 Single live birth
CPT/HCPCS: 36415; 36600; 82803; 85025; 88307-TC; 90715

== ENCOUNTER 2021-11-01 09:22 | Emergency (ER) | payer OTHER ==
[2021-11-01 09:32] VITALS: TEMP 97.6; BMI 31.6
[2021-11-01] MEDS ORDERED: KETOROLAC TROMETHAMINE 15 MG/ML VIAL IVPUSH ONE (10:22)
[2021-11-01] MEDS ORDERED: KETOROLAC TROMETHAMINE 15 MG/ML VIAL ONE (10:51)
[2021-11-01 11:07] LABS: BASO % 0.4 % (0-2.0); EOS % 1.4 % (0-4.5); HEMATOCRIT 36.9 % (32.4-45.2); HEMOGLOBIN 11.9 GM/dL (10.7-15.3); LYMPH % 34.7 % (8-40); MCH 25.4 pg (25.7-33.7); MCHC 32.4 g/dl (32.0-36.0); MEAN CELL VOLUME 78.2 fl (80-96); MEAN PLT VOLUME 9.6 fl (7.5-11.1); MONO % 9.2 % (3.8-10.2); NEUT % 54.3 % (42.8-82.8); PLATELET COUNT 232 10^3/uL (134-434); RBC 4.71 M/mm3 (3.60-5.2); RDW 18.3 % (11.6-15.6); WHITE BLOOD COUNT 6.3 K/mm3 (4.0-10.0)
[2021-11-01 11:30] LABS: BLOOD UREA NITROGEN 12.2 mg/dL (7-18); CALCIUM 9.7 mg/dL (8.5-10.1)
[2021-11-01 11:33] LABS: CREATININE 0.8 mg/dL (0.55-1.3)
[2021-11-01 11:35] LABS: BILIRUBIN,TOTAL 0.3 mg/dL (0.2-1); TOT PROT 7.4 g/dl (6.4-8.2)
[2021-11-01 12:01] LABS: URINE APPEARANCE CLEAR; URINE BILIRUBIN NEGATIVE (NEGATIVE); URINE COLOR YELLOW; URINE GLUCOSE (UA) NEGATIVE (NEGATIVE); URINE KETONE NEGATIVE (NEGATIVE); URINE LEUK ESTERASE NEGATIVE (NEGATIVE); URINE NITRITE NEGATIVE (NEGATIVE); URINE PROTEIN NEGATIVE (NEGATIVE); URINE UROBILINOGEN 0.2 mg/dL (0.2-1.0)
[2021-11-01 12:04] LABS: HCG,QUALITATIVE URINE Negative
[2021-11-01 14:00] VITALS: BP 146/90; PULSE 60
== END 2021-11-01 14:00 | disposition home or self-care (01) ==
LOC: JER 09:22
PROC: 3E033GC Introduction of Other Therapeutic Substance into Peripheral Vein, Percutaneous Approach (ICD-10-PCS; principal; 2021-11-01)
DX: R10.2 Pelvic and perineal pain (principal); D25.9 Leiomyoma of uterus, unspecified
CPT/HCPCS: 36415; 76830-TC; 80053; 81003; 83690; 84703; 85025; 87086; 99284-25